=== PATIENT | male | born 1990 | race Caucasian/White ===

== ENCOUNTER 2017-02-04 12:18 | Emergency (ER) | payer SELFPAY ==
[~2017-02-04] VITALS: Ht 175.3 cm; Wt 63.5 kg
[2017-02-04] MEDS ORDERED: anxiety med (12:29)
[2017-02-04 15:22] LABS: BASOPHILS % (AUTO) 0 % (0-10); EOSINOPHILS # (AUTO) 0.2 10^3/uL (0.0-0.3); EOSINOPHILS % (AUTO) 1 % (0-10); LYMPHOCYTES # (AUTO) 3.5 X 10^3 (1.0-4.0); LYMPHOCYTES % (AUTO) 31 % (12-44); MEAN CORPUSCULAR HEMOGLOBIN 29 PG (25-34); MEAN CORPUSCULAR HGB CONC 34 G/DL (32-36); MEAN CORPUSCULAR VOLUME 85 FL (80-99); MEAN PLATELET VOLUME 10.3 FL (7.4-10.4); MONOCYTES # (AUTO) 0.9 X 10^3 (0.0-1.0); MONOCYTES % (AUTO) 8 % (0-12); NEUTROPHILS # (AUTO) 6.9 X 10^3 (1.8-7.8); NEUTROPHILS % (AUTO) 60 % (42-75); PLATELET COUNT 415 10^3/uL (130-400); RED BLOOD COUNT 5.09 10^6/uL (4.35-5.85); RED CELL DISTRIBUTION WIDTH 13.3 % (10.0-14.5); WHITE BLOOD COUNT 11.5 10^3/uL (4.3-11.0)
--- NOTE | 2017-02-04 15:30 | Diagnostic Imaging Report ---
INDICATION: Right-sided chest pain x3 weeks. TECHNIQUE: Two view chest 3:42 PM CORRELATION STUDY: None FINDINGS: The heart size, mediastinal configuration and pulmonary vasculature are within normal limits. The lungs are clear with no consolidating infiltrate. There is no significant pleural effusion or pneumothorax. Visualized osseous structures are unremarkable. IMPRESSION: 1. No radiographic evidence for acute abnormality of the chest. Dictated by: Dictated on workstation # [id number]
[2017-02-04 15:40] LABS: ALANINE AMINOTRANSFERASE 36 U/L (0-55); ALBUMIN 4.1 GM/DL (3.2-4.5); ALCOHOL < 10 MG/DL (<10); ANION GAP 7 MMOL/L (5-14); ASPARTATE AMINO TRANSFERASE 27 U/L (5-34); BILIRUBIN,TOTAL 0.6 MG/DL (0.1-1.0); BLOOD UREA NITROGEN 14 MG/DL (7-18); BUN/CREATININE RATIO 16; CALCIUM 9.2 MG/DL (8.5-10.1); CARBON DIOXIDE 29 MMOL/L (21-32); CHLORIDE 103 MMOL/L (98-107); CREATININE SERUM 0.89 MG/DL (0.60-1.30); GFR ESTIMATED > 60; GLUCOSE 90 MG/DL (70-105); POTASSIUM 3.5 MMOL/L (3.6-5.0); SODIUM 139 MMOL/L (135-145); TOTAL PROTEIN 6.7 GM/DL (6.4-8.2)
[2017-02-04 15:45] LABS: TROPONIN I < 0.30 NG/ML (<0.30)
[2017-02-04] MEDS ORDERED: ANTACID SUSP 30 ML UDC (MYLANTA) PO ONE (16:15)
[2017-02-04] MEDS ORDERED: LIDOCAINE 2% VISCOUS 15 ML UDC PO ONE (16:15)
[2017-02-04] MEDS ORDERED: KETOROLAC 30 MG/ML VIAL IVP ONE (16:45)
[2017-02-04] MEDS ORDERED: methylPREDNISolone 125 MG (Solu-MEDROL) VIAL IVP ONE (17:15)
[2017-02-04] MEDS ORDERED: PRD20T PO (17:22)
--- NOTE | 2017-02-04 17:22 | ED General ---
General Chief Complaint: General Problems/Pain Stated Complaint: CP Nursing Triage Note: Pt reports he had a "panic attack" at 0900 this morning and reports R sided chest tightness since. Pt states chest hurts worse when talking, laughing, or coughing. Pt also reports excessive burping x1 week. Pt had folow-up appt at [facility] today at 1430 but stated he needed to be seen before that. Nursing Sepsis Screen: No Definite Risk Source of Information: Patient Exam Limitations: No Limitations History of Present Illness Time Seen by Provider: 14:33 Initial Comments This 26-year-old young man presents to the emergency room with complaints of right-sided chest pain that is sharp in nature and worse with movement, deep breathing, cough, etc. This pain has been present for about 3 weeks. He recently moved here from [place] and was seen at an emergency room in [place] for the same problem. He also reports feeling some dizziness earlier in the day and some associated chest tightness. He has some excessive belching. He does have problems with anxiety and takes hydroxyzine. He reports having an anxiety exacerbation this morning but does not feel that his symptoms are directly related to anxiety. He does smoke cigarettes and admits to drinking 5 or 6 shots daily for the past 2 or 3 days because of stress. He does not normally drink alcohol on a daily basis. He denies any drug use. Allergies and Home Medications Allergies Coded Allergies: No Known Drug Allergies (Unverified , 02/04/17) Home Medications Prednisone 20 Mg Tab, 20 MG PO BID, #6 Prescribed by: JOSE SANTORO on 02/04/17 1722 [anxiety med] , (Reported) Constitutional: no symptoms reported EENTM: no symptoms reported Respiratory: see HPI Cardiovascular: see HPI Gastrointestinal: no symptoms reported Genitourinary: no symptoms reported Musculoskeletal: see HPI Skin: no symptoms reported Psychiatric/Neurological: See HPI Hematologic/Lymphatic: No Symptoms Reported Past Nkbexet-Xjakvh-Zerkgs Hx Patient Social History Alcohol Use: Occasionally Uses Recreational Drug Use: No Smoking Status: Current Someday Smoker Type Used: Cigarettes Recent Foreign Travel: No Contact w/Someone Who Travel: No Recent Infectious Disease Expo: No Recent Hopitalizations: No Seasonal Allergies Seasonal Allergies: No Surgeries History of Surgeries: Yes Surgeries: Orthopedic (Hand) Respiratory History of Respiratory Disorde: No Cardiovascular History of Cardiac Disorders: No Neurological History of Neurological Disord: No Reproductive System Hx Reproductive Disorders: No Genitourinary History of Genitourinary Disor: No Gastrointestinal History of Gastrointestinal Di: No Musculoskeletal History of Musculoskeletal Dis: No Endocrine History of Endocrine Disorders: No HEENT History of HEENT Disorders: No Cancer History of Cancer: No Psychosocial History of Psychiatric Problem: Yes Behavioral Health Disorders: Anxiety Integumentary History of Skin or Integumenta: No Blood Transfusions History of Blood Disorders: No Physical Exam Vital Signs Vital Sign - Last 12Hours 02/04/17 12:25 Temp 99.4 Pulse 78 Resp 18 B/P (MAP) 114/73 Pulse Ox 100 O2 Delivery Room Air Capillary Refill : Less Than 3 Seconds General Appearance: No Apparent Distress, WD/WN HEENT: PERRL/EOMI, Normal ENT Inspection Neck: Normal Inspection Respiratory: Chest Non Tender, Lungs Clear, Normal Breath Sounds, No Accessory Muscle Use, No Respiratory Distress Cardiovascular: Regular Rate, Rhythm, No Edema, No Murmur, Normal Peripheral Pulses Gastrointestinal: Normal Bowel Sounds, Non Tender, Soft Extremity: Normal Inspection, Non Tender, No Calf Tenderness, No Pedal Edema, Other (Negative Veena) Neurologic/Psychiatric: Alert, Oriented x3, No Motor/Sensory Deficits, Normal Mood/Affect, 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 Skin: Normal Color, Warm/Dry Progress/Results/Core Measures Results/Orders Lab Results Laboratory Tests Test 02/04/17 15:11 02/04/17 16:21 Range/Units White Blood Count 11.5 H 4.3-11.0 10^3/uL Red Blood Count 5.09 4.35-5.85 10^6/uL Hemoglobin 14.7 13.3-17.7 G/DL Hematocrit 43 40-54 % Mean Corpuscular Volume 85 80-99 FL Mean Corpuscular Hemoglobin 29 25-34 PG Mean Corpuscular Hemoglobin Concent 34 32-36 G/DL Red Cell Distribution Width 13.3 10.0-14.5 % Platelet Count 415 H 130-400 10^3/uL Mean Platelet Volume 10.3 7.4-10.4 FL Neutrophils (%) (Auto) 60 42-75 % Lymphocytes (%) (Auto) 31 12-44 % Monocytes (%) (Auto) 8 0-12 % Eosinophils (%) (Auto) 1 0-10 % Basophils (%) (Auto) 0 0-10 % Neutrophils # (Auto) 6.9 1.8-7.8 X 10^3 Lymphocytes # (Auto) 3.5 1.0-4.0 X 10^3 Monocytes # (Auto) 0.9 0.0-1.0 X 10^3 Eosinophils # (Auto) 0.2 0.0-0.3 10^3/uL Basophils # (Auto) 0.0 0.0-0.1 10^3/uL Sodium Level 139 135-145 MMOL/L Potassium Level 3.5 L 3.6-5.0 MMOL/L Chloride Level 103 98-107 MMOL/L Carbon Dioxide Level 29 21-32 MMOL/L Anion Gap 7 5-14 MMOL/L Blood Urea Nitrogen 14 7-18 MG/DL Creatinine 0.89 0.60-1.30 MG/DL Estimat Glomerular Filtration Rate > 60 BUN/Creatinine Ratio 16 Glucose Level 90 70-105 MG/DL Calcium Level 9.2 8.5-10.1 MG/DL Magnesium Level 2.0 1.8-2.4 MG/DL Total Bilirubin 0.6 0.1-1.0 MG/DL Aspartate Amino Transf (AST/SGOT) 27 5-34 U/L Alanine Aminotransferase (ALT/SGPT) 36 0-55 U/L Alkaline Phosphatase 69 40-136 U/L Troponin I < 0.30 <0.30 NG/ML Total Protein 6.7 6.4-8.2 GM/DL Albumin 4.1 3.2-4.5 GM/DL Serum Alcohol < 10 <10 MG/DL Urine Opiates Screen NEGATIVE NEGATIVE Urine Oxycodone Screen NEGATIVE NEGATIVE Urine Methadone Screen NEGATIVE NEGATIVE Urine Propoxyphene Screen NEGATIVE NEGATIVE Urine Barbiturates Screen NEGATIVE NEGATIVE Ur Tricyclic Antidepressants Screen NEGATIVE NEGATIVE Urine Phencyclidine Screen NEGATIVE NEGATIVE Urine Amphetamines Screen NEGATIVE NEGATIVE Urine Methamphetamines Screen NEGATIVE NEGATIVE Urine Benzodiazepines Screen NEGATIVE NEGATIVE Urine Cocaine Screen NEGATIVE NEGATIVE Urine Cannabinoids Screen POSITIVE H NEGATIVE My Orders Orders - JOSE MCMILLAN MD Alcohol (02/04/17 15:00) Cbc With Automated Diff (02/04/17 15:00) Comprehensive Metabolic Panel (02/04/17 15:00) Drug Screen Stat (Urine) (02/04/17 15:00) Magnesium (02/04/17 15:00) Troponin I (02/04/17 15:00) Saline Lock/Iv-Start (02/04/17 15:00) Ekg Tracing (02/04/17 15:00) Monitor-Rhythm Ecg Trace Only (02/04/17 15:00) Chest Pa/Lat (2 View) (02/04/17 15:00) Lidocaine 2% Viscous 15 Ml (Xylocaine Vi (02/04/17 16:15) Antacid Suspension (Mylanta Suspension (02/04/17 16:15) Ketorolac Injection (Toradol Injection) (02/04/17 16:45) Methylprednisolone Sod Succ (Solu-Medrol (02/04/17 17:15) Medications Given in ED Current Medications Medications Dose Ordered Sig/Nj Route Start Time Stop Time Status Last Admin Dose Admin Al Hydrox/Mg Hydrox/Simethicone 30 ml ONCE ONCE PO 02/04/17 16:15 02/04/17 16:16 DC 02/04/17 16:21 30 ML Ketorolac Tromethamine 30 mg ONCE ONCE IVP 02/04/17 16:45 02/04/17 16:46 DC 02/04/17 16:53 30 MG Lidocaine HCl 15 ml ONCE ONCE PO 02/04/17 16:15 02/04/17 16:16 DC 02/04/17 16:21 15 ML Methylprednisolone Sodium Succinate 62.5 mg ONCE ONCE IVP 02/04/17 17:15 02/04/17 17:16 DC 02/04/17 17:32 62.5 MG Vital Signs/I&O Vital Sign - Last 12Hours 02/04/17 02/04/17 12:25 17:36 Temp 99.4 99.4 Pulse 78 80 Resp 18 18 B/P (MAP) 114/73 Pulse Ox 100 99 O2 Delivery Room Air Blood Pressure Mean: 87 Progress Note : Progress Note Workup was unremarkable. Patient was given a GI cocktail which did not improve his pain. He was then given Toradol which minimally improved his pain. Patient does not have tachycardia, fever, hypoxia, or lower extremity symptoms. I offered more intensive anti-inflammatory therapy with steroids. Patient would like to proceed with that route. He does not think he will be able to afford any prescription medications soon. A dose of Solu-Medrol was therefore administered. He plans to follow-up at [facility]. ECG Initial ECG Impression Date: Feb 04, 2017 Initial ECG Impression Time: 15:01 Initial ECG Rate: 50 Initial ECG Rhythm: Normal Sinus Initial ECG Intervals: Normal Initial ECG Impression: Normal Comment Normal sinus rhythm with no ST elevation or depression. No abnormal intervals or axis deviation. Diagnostic Imaging Diagonstic Imaging: Xray Plain Films/CT/US/NM/MRI: chest Comments Chest x-ray viewed by me and report reviewed. See report below: NAME: HAZEL ZAMUDIO [facility] REC#: [id number] PT STATUS: REG ER : 1990 PHYSICIAN: JOSE MCMILLAN MD ADMIT DATE: 02/04/17/ER Signed Date of Exam: 02/04/17 CHEST PA/LAT (2 VIEW) INDICATION: Right-sided chest pain x3 weeks. TECHNIQUE: Two view chest 3:42 PM CORRELATION STUDY: None FINDINGS: The heart size, mediastinal configuration and pulmonary vasculature are within normal limits. The lungs are clear with no consolidating infiltrate. There is no significant pleural effusion or pneumothorax. Visualized osseous structures are unremarkable. IMPRESSION: 1. No radiographic evidence for acute abnormality of the chest. Dictated by: Dictated on workstation # [id number] Dict: 02/04/17 1527 Trans: 02/04/17 1527 Interpreted by: JOCY AMAYA DO Electronically signed by: JOCY AMAYA DO 02/04/17 1527 Departure Impression Impression: Primary Impression: Atypical chest pain Disposition: 01 HOME, SELF-CARE Condition: Stable Departure-Patient Inst. Decision time for Depature: 17:05 Referrals: NO,LOCAL PHYSICIAN (PCP/Family) Primary Care Physician Patient Instructions: Chest Pain That Is Not Caused by the Heart (DC) Add. Discharge Instructions: You may take ibuprofen up to 600 mg every 6 hours as needed for pain. Add Tylenol (acetaminophen) up to 1000 mg every 6 hours as needed for additional pain relief. Complete the prednisone prescription as prescribed. Take ibuprofen and prednisone with food or milk to avoid stomach irritation. [facility]- [facility] with the [facility] as soon as possible. All discharge instructions reviewed with patient and/or family. Voiced understanding. Scripts Prednisone (Prednisone) 20 Mg Tab 20 MG PO BID, #6 TAB Prov: JOSE MCMILLAN MD 02/04/17 Copy Copies To 1: ROJEILO KWONG MD, JOSHUA T MD Feb 04, 2017 17:22
[2017-02-04 17:36] VITALS: BP 123/69
== END 2017-02-04 17:36 | disposition home or self-care (01) ==
LOC: ER 12:21
DX: R07.89 Other chest pain (principal); F41.9 Anxiety disorder, unspecified; F17.210 Nicotine dependence, cigarettes, uncomplicated
CPT/HCPCS: 36415; 71020; 80053; 80306; 80320; 83735; 84484; 85025; 93005; 93041

== ENCOUNTER 2019-05-25 12:10 | Emergency (ER) | payer SELFPAY ==
[~2019-05-25] VITALS: Ht 175.2 cm; Wt 67.0 kg
[~2019-05-25 12:10] MED LIST: PRD20T PO; anxiety med
[2019-05-25] MEDS ORDERED: CEFU250T80 PO (13:15)
[2019-05-25] MEDS ORDERED: PRD20T PO (13:15)
--- NOTE | 2019-05-25 13:16 | ED Cough/URI ---
General Chief Complaint: Cough/Cold/Flu Symptoms Stated Complaint: CONGESTION;COUGH Nursing Triage Note: Pt c/o congestion and sore throat for three weeks. Pt reports cough that began two weeks ago. Pt reports seeing PCP and being prescribed steroid and nasal spray, however symptoms have worsened. Pt reports coughing up dark brown mucous and lungs "feel foggy." Sepsis Screen: No Definite Risk Source: patient Exam Limitations: no limitations History of Present Illness Date Seen by Provider: May 25, 2019 Time Seen by Provider: 13:13 Initial Comments 3 week history of cough runny nose sore throat with progressively more productive cough. No fevers. Tested for strep and flu at the onset of this, both negative he reports Timing/Duration: constant Severity/Quality: productive cough Associated Symptoms: cough Allergies and Home Medications Allergies Coded Allergies: No Known Drug Allergies (Unverified , 02/04/17) Home Medications Cefuroxime Axetil 250 Mg Tablet, 250 MG PO BID Prescribed by: ADRIANA GALLO on 05/25/19 1315 Prednisone 20 Mg Tab, 20 MG PO BID Prescribed by: JOSE SANTORO on 02/04/17 1722 Prednisone 20 Mg Tab, 40 MG PO DAILY Prescribed by: ADRIANA GALLO on 05/25/19 1315 Patient Home Medication List Home Medication List Reviewed: Yes Review of Systems Review of Systems Constitutional: see HPI EENTM: see HPI, nose congestion Respiratory: see HPI, cough Genitourinary: no symptoms reported Musculoskeletal: no symptoms reported Skin: no symptoms reported Psychiatric/Neurological: No Symptoms Reported Hematologic/Lymphatic: No Symptoms Reported Immunological/Allergic: no symptoms reported Past Bfbdorg-Jxauic-Acrdts Hx Patient Social History Alcohol Use: Occasionally Uses Recreational Drug Use: No Smoking Status: Current Everyday Smoker Type Used: Cigarettes 2nd Hand Smoke Exposure: Yes Recent Foreign Travel: No Contact w/Someone Who Travel: No Recent Infectious Disease Expo: No Recent Hopitalizations: No Seasonal Allergies Seasonal Allergies: No Past Medical History Surgeries: Yes Orthopedic Respiratory: No Cardiac: No Neurological: No Reproductive Disorders: No Genitourinary: No Gastrointestinal: No Musculoskeletal: No Endocrine: No HEENT: No Cancer: No Psychosocial: Yes Anxiety Integumentary: No Blood Disorders: No Physical Exam Vital Signs - First Documented Capillary Refill : Less Than 3 Seconds Height: 5'9.00" Weight: 140lbs. oz. [id number]; 21.00 BMI Method:Stated General Appearance: WD/WN, no apparent distress Eyes: Bilateral Eye Normal Inspection, Bilateral Eye PERRL, Bilateral Eye EOMI HEENT: PERRL/EOMI, normal ENT inspection, TMs normal, pharyngeal erythema Respiratory: lungs clear, normal breath sounds, no respiratory distress, no accessory muscle use Cardiovascular: regular rate, rhythm, no murmur Gastrointestinal: normal bowel sounds, non tender, soft Neurologic/Psychiatric: alert, normal mood/affect, oriented x 3 Skin: normal color, warm/dry Progress/Results/Core Measures Suspected Sepsis Recent Fever Within 48 Hours: No Infection Criteria Present: None New/Unexplained Altered Menta: No Sepsis Screen: No Definite Risk SIRS Temperature: Pulse: 80 Respiratory Rate: 15 Blood Pressure 115 /73 Mean: 87 Results/Orders My Orders Orders - ADRIANA GALLO APRN Chest Pa/Lat (2 View) (05/25/19 13:04) Vital Signs/I&O 05/25/19 05/25/19 12:50 12:50 Temp 36.7 Pulse 80 Resp 15 B/P (MAP) 115/73 (87) Pulse Ox 99 O2 Delivery Room Air Room Air Capillary Refill : Less Than 3 Seconds Blood Pressure Mean: 87 Departure Impression Primary Impression: Bronchitis Disposition: 01 HOME, SELF-CARE Condition: Stable Departure-Patient Inst. Decision time for Depature: 13:14 Referrals: NO,LOCAL PHYSICIAN (PCP/Family) Primary Care Physician Patient Instructions: Acute Bronchitis, Adult (DC) Add. Discharge Instructions: 1. Medication as directed 2. Return to ER for any concerns 3. Follow-up with your doctor next week 4. All discharge instructions reviewed with patient and/or family. Voiced understanding. Scripts Amoxicillin (Amoxicillin) 500 Mg Capsule 500 MG PO TID, #21 CAP 0 Refills Prov: ADRIANA GALLO APRN 05/25/19 Prednisone (Prednisone) 20 Mg Tab 40 MG PO DAILY, #8 TAB 0 Refills Prov: ADRIANA GALLO APRN 05/25/19 Work/School Note: Work Release Form Date Seen in the Emergency Department: May 25, 2019 Return to Work: May 26, 2019 ADRIANA GALLO APRN May 25, 2019 13:15
--- NOTE | 2019-05-25 13:38 | Diagnostic Imaging Report ---
INDICATION: Congestion, sore throat. FINDINGS: The lungs are clear. The heart and vessels are normal. There is no effusion or pneumothorax. IMPRESSION: Negative. Dictated by: Dictated on workstation # [id number]
[2019-05-25] MEDS ORDERED: AMOX500C2 PO (13:44)
[2019-05-26 13:33] VITALS: BP 115/73
== END 2019-05-26 13:35 | disposition home or self-care (01) ==
LOC: EDUNIT# 12:10 → ER 12:12
DX: J40 Bronchitis, not specified as acute or chronic (principal); F17.210 Nicotine dependence, cigarettes, uncomplicated; Z79.52 Long term (current) use of systemic steroids
CPT/HCPCS: 71046; 99282

== ENCOUNTER 2020-08-09 14:59 | Emergency (ER) | payer SELFPAY ==
[~2020-08-09] VITALS: Ht 172 cm; Wt 77.1 kg
[~2020-08-09 14:59] MED LIST changes: +AMOX500C2 PO; +CEFU250T80 PO
[2020-08-09 15:22] VITALS: BP 124/77
--- NOTE | 2020-08-09 15:59 | ED Integumentary General ---
General Chief Complaint: Skin/Wound Problems Stated Complaint: LUMP ON BACK OF HEAD / PAIN Nursing Triage Note: pt presents to ed with complaints of of bump on back side of head for several years. reports sometimes it is painful and he wants it checked out. Source: patient Exam Limitations: no limitations History of Present Illness Date Seen by Provider: August 09, 2020 Time Seen by Provider: 15:55 Initial Comments To ER with reports of a nodule to the right side of his upper neck and the back. This is been present for many years and occasionally will get large and tender and then will shrink again. Timing/Duration: other Severity: moderate Associated Symptoms: denies symptoms Allergies and Home Medications Allergies Coded Allergies: No Known Drug Allergies (Unverified , 02/04/17) Home Medications Amoxicillin 500 Mg Capsule, 500 MG PO TID Prescribed by: ADRIANA GALLO on 05/25/19 1344 Prednisone 20 Mg Tab, 20 MG PO BID Prescribed by: JOSE SANTORO on 02/04/17 1722 Prednisone 20 Mg Tab, 40 MG PO DAILY Prescribed by: ADRIANA GALLO on 05/25/19 1315 Patient Home Medication List Home Medication List Reviewed: Yes Review of Systems Review of Systems Constitutional: see HPI; No chills, No fever EENTM: see HPI Respiratory: no symptoms reported Cardiovascular: no symptoms reported Genitourinary: no symptoms reported Musculoskeletal: no symptoms reported Skin: no symptoms reported Psychiatric/Neurological: No Symptoms Reported Endocrine: No Symptoms Reported Past Uafklcy-Zdjlyt-Kbukxw Hx Patient Social History Alcohol Use: Occasionally Uses Smoking Status: Current Everyday Smoker Type Used: Cigarettes 2nd Hand Smoke Exposure: Yes Recent Infectious Disease Expo: No Recent Hopitalizations: No Seasonal Allergies Seasonal Allergies: No Past Medical History Surgeries: Yes (r hand) Orthopedic Respiratory: No Cardiac: No Neurological: No Reproductive Disorders: No Genitourinary: No Gastrointestinal: No Musculoskeletal: No Endocrine: No HEENT: No Cancer: No Psychosocial: Yes Anxiety Integumentary: No Blood Disorders: No Physical Exam Vital Signs Vital Signs - First Documented 08/09/20 15:22 Temp 37.1 Pulse 67 Resp 18 B/P (MAP) 124/77 (93) Pulse Ox 100 Capillary Refill : Less Than 3 Seconds General Appearance: WD/WN, no apparent distress HEENT: PERRL/EOMI, normal ENT inspection, other (There is a flat nevus with regular borders and no unusual coloring about 3 mm in diameter to the right lateral lower occipital region. Beneath this is a mobile but tender nodule consistent with lymph node. Surrounding skin is normal without erythema. No other posterior or anterior cervical chain lymphadenopathy. No systemic symptoms such as night sweats weight loss.) Neck: non-tender, full range of motion Respiratory: no respiratory distress, no accessory muscle use Extremities: normal range of motion, non-tender Neurologic/Psychiatric: alert, normal mood/affect Skin: normal color, warm/dry Skin Problem Character: other Progress/Results/Core Measures Results/Orders Vital Signs/I&O 08/09/20 15:22 Temp 37.1 Pulse 67 Resp 18 B/P (MAP) 124/77 (93) Pulse Ox 100 Blood Pressure Mean: 93 Departure Communication (Admissions) Discussed with him that this is a solitary mobile tender lymph node that is quite small about the size of a pea and is not concerning for malignancy given his absence of other symptoms but he is concerned based on the duration of its presence which has been for many years. Further evaluation can be with biopsy. I will refer him to surgery. Impression Primary Impression: Posterior cervical lymphadenopathy Disposition: HOME, SELF-CARE Condition: Stable Departure-Patient Inst. Decision time for Depature: 15:57 Referrals: RHONA SIMPSON BRETT D DO NO,LOCAL PHYSICIAN (PCP) Primary Care Physician Patient Instructions: Lymphadenitis (DC) Add. Discharge Instructions: 1. Call Dr. Barrios today to make an appointment to be seen whenever he can see you. All discharge instructions reviewed with patient and/or family. Voiced understan kaushal. Work/School Note: Work Release Form Date Seen in the Emergency Department: August 09, 2020 Return to Work: August 10, 2020 Copy Copies To 1: LIANNE BARRIOS PETER J APRN August 09, 2020 15:59
== END 2020-08-09 16:01 | disposition home or self-care (01) ==
LOC: EDUNIT# 14:59 → ER 15:00
DX: R59.1 Generalized enlarged lymph nodes (principal); F17.210 Nicotine dependence, cigarettes, uncomplicated; Z79.52 Long term (current) use of systemic steroids
CPT/HCPCS: 99282